=== PATIENT | female | born 1985 | race Caucasian/White ===

== ENCOUNTER 2019-03-14 04:36 | Emergency (ER) | payer OTHER ==
[2019-03-14] MEDS: LORAZEPAM 1 MG TAB PO (05:12)
[2019-03-14] MEDS ORDERED: OLANZAPINE 5 MG TAB PO (05:16)
[2019-03-14] MEDS ORDERED: RISPERIDONE 1 MG TAB PO (09:00)
== END 2019-03-14 14:05 ==
LOC: E/R 04:36
DX: F19.151 Other psychoactive substance abuse with psychoactive substance-induced psychotic disorder with hallucinations (principal); D64.9 Anemia, unspecified; F17.210 Nicotine dependence, cigarettes, uncomplicated; Z73.6 Limitation of activities due to disability
CPT/HCPCS: 36415; 80053; 80307; 81001; 81003; 81025; 85025; 99285